=== PATIENT | female | born 1955 | race Caucasian/White ===

== ENCOUNTER 2025-01-22 18:07 | Inpatient (IN) ==
[2025-01-22] MEDS: IPRATROPIUM/ALBUTEROL 3 ML AMPUL.NEB NEB ONE (18:54)
[2025-01-22] MEDS: cefTRIAXone 1 GM in DEXTROSE 5% IN WATER 50 ML IV SCH (18:57)
[2025-01-22] MEDS: 0.9 % SODIUM CHLORIDE 1,000 ML IV ONE (18:58)
[2025-01-22] MEDS: AZITHROMYCIN 500 MG in DEXTROSE 5% IN WATER 250 ML IV ONE (19:27)
[2025-01-22] MEDS ORDERED: HYDROcodone/APAP (PP) 5/325MG TABLET (#4) PO PRN (20:06)
[2025-01-22] MEDS ORDERED: LORazepam 0.5 MG TABLET PO PRN (20:06)
[2025-01-22] MEDS ORDERED: ALBUTEROL SULFATE 60 PUFF INHALER INH PRN (20:06)
[2025-01-22] MEDS ORDERED: traZODone HCL 50 MG TABLET PO PRN (20:18)
[2025-01-22] MEDS ORDERED: ONDANSETRON 4 MG/2 ML VIAL IV PRN (20:18)
[2025-01-22] MEDS ORDERED: DEXTROSE 50% 50 ML VIAL IV PRN (20:18)
[2025-01-22] MEDS ORDERED: DEXTROSE 31 GM ORAL.SUSP PO PRN (20:18)
[2025-01-22] MEDS ORDERED: guaiFENesin/DEXTROMETHORPHAN 5ML UD CUP PO PRN (20:18)
[2025-01-22] MEDS ORDERED: HYDROcodone/APAP 5/325MG TABLET PO PRN (20:25)
[2025-01-22] MEDS: 0.9 % SODIUM CHLORIDE 1,000 ML IV SCH (20:51)
[2025-01-22] MEDS: cefTRIAXone 1 GM VIAL IV ONE (20:52)
[2025-01-22] MEDS: predniSONE 20 MG TABLET PO ONE (20:55)
[2025-01-22] MEDS: SERTRALINE 100 MG TABLET PO SCH (20:56)
[2025-01-22] MEDS: GABAPENTIN 300 MG CAPSULE PO SCH (20:56)
[2025-01-22] MEDS: ATORVASTATIN 10 MG TABLET PO SCH (20:56)
[2025-01-22] MEDS: SENNOSIDES 1 TABLET PO SCH (20:58)
[2025-01-22] MEDS: DOCUSATE SODIUM 100 MG CAPSULE PO SCH (20:58)
[2025-01-22] MEDS: INSULIN LISPRO 1 UNIT/0.01 ML UNIT SQ SCH (20:58)
[2025-01-22] MEDS: TRAVOPROST OPHTH DROPS BOTTLE 2.5ML OU SCH (20:59)
[2025-01-22] MEDS: 0.9 % SODIUM CHLORIDE 10 ML SYRINGE IV SCH (20:59)
[2025-01-23 06:04] LABS: Basophils # (Auto) 0.01 K/mcL (0.00-0.30); Basophils % (Auto) 0.1 % (0.0-2.0); Eosinophils # (Auto) 0 K/mcL (0.00-0.70); Eosinophils % (Auto) 0 % (0.0-7.0); Hematocrit 36.2 % (34.1-44.9); Hemoglobin 11.2 g/dL (11.2-15.7); Lymphocytes # (Auto) 0.79 K/mcL (1.50-4.80); Lymphocytes % (Auto) 5.3 % (15.5-49.0); Mean Cell Volume 85.6 fL (80.0-100.0); Mean Corpuscular HGB Conc 30.9 g/dL (31.0-36.0); Mean Platelet Volume 11.6 fL (8.8-12.5); Monocytes # (Auto) 0.33 K/mcL (0.10-0.90); Monocytes % (Auto) 2.2 % (1.0-12.0); Neutrophils % (Auto) 91.9 % (38.0-78.0); Platelet Count 220 K/mcL (140-440); RBC 4.23 M/mcL (3.59-5.38); Red Cell Distribution Width 15.7 % (11.5-14.5); WBC 14.9 K/mcL (4.5-11.0)
[2025-01-23 06:31] LABS: ALT/SGPT 20 U/L (<40); AST/SGOT 22 U/L (<32); Albumin 3.8 gm/dL (3.2-5.2); Albumin/Globulin Ratio 1.2 (1.0-2.3); Alkaline Phosphatase 116 U/L (39-117); Bilirubin,Total 0.4 mg/dL (0.1-1.0); Blood Urea Nitrogen 20 mg/dL (8-23); Calcium 8.7 mg/dL (8.6-10.4); Carbon Dioxide 23 mmol/L (22-30); Chloride 108 mmol/L (96-108); Globulin 3.1 gm/dL (2.2-3.7); Glomerular Filtration Rate 87; Glucose 198 mg/dL (70-105); Potassium 3.7 mmol/L (3.3-5.1); Sodium 142 mmol/L (133-145)
[2025-01-23] MEDS: predniSONE 20 MG TABLET PO SCH (07:49)
[2025-01-23] MEDS: OMEPRAZOLE 20 MG CAPSULE PO SCH (07:49)
[2025-01-23] MEDS: ENOXAPARIN 40 MG/0.4 ML SYRINGE SQ SCH (08:59)
[2025-01-23] MEDS: MELOXICAM 7.5 MG TABLET PO SCH (09:00)
[2025-01-23 09:25] LABS: Estimated Average Glucose(eAG) 134 mg/dL; Hemoglobin A1C 6.3 % Hgb (4.0-6.0)
[2025-01-23] MEDS ORDERED: ALBUTEROL SULFATE 2.5 MG/3 ML NEBULIZER INH PRN (10:27)
[2025-01-23] MEDS: cefTRIAXone 2 GM in DEXTROSE 5% IN WATER 50 ML IV SCH (10:45)
[2025-01-23] MEDS: IPRATROPIUM/ALBUTEROL 3 ML AMPUL.NEB NEB PRN (11:07)
[2025-01-23] MEDS ORDERED: AZITHROMYCIN 500 MG in DEXTROSE 5% IN WATER 250 ML IV SCH (12:00)
[2025-01-23] MEDS: AZITHROMYCIN 500 MG in 0.9 % SODIUM CHLORIDE 250 ML IV SCH (12:25)
[2025-01-23] MEDS: ALBUTEROL SULFATE 2.5 MG/3 ML NEBULIZER INH PRN (19:00)
[2025-01-23] MEDS: ACETAMINOPHEN 325 MG TABLET PO PRN (21:28)
[2025-01-24 05:57] LABS: Basophils # (Auto) 0.01 K/mcL (0.00-0.30); Basophils % (Auto) 0.1 % (0.0-2.0); Eosinophils # (Auto) 0 K/mcL (0.00-0.70); Eosinophils % (Auto) 0 % (0.0-7.0); Hematocrit 30.3 % (34.1-44.9); Hemoglobin 9.6 g/dL (11.2-15.7); Lymphocytes # (Auto) 1.57 K/mcL (1.50-4.80); Lymphocytes % (Auto) 13.7 % (15.5-49.0); Mean Cell Volume 84.4 fL (80.0-100.0); Mean Corpuscular HGB Conc 31.7 g/dL (31.0-36.0); Mean Platelet Volume 11.4 fL (8.8-12.5); Monocytes # (Auto) 0.53 K/mcL (0.10-0.90); Monocytes % (Auto) 4.6 % (1.0-12.0); Neutrophils % (Auto) 81.1 % (38.0-78.0); Platelet Count 221 K/mcL (140-440); RBC 3.59 M/mcL (3.59-5.38); Red Cell Distribution Width 15.6 % (11.5-14.5); WBC 11.5 K/mcL (4.5-11.0)
[2025-01-24 06:26] LABS: ALT/SGPT 16 U/L (<40); AST/SGOT 17 U/L (<32); Albumin 3.4 gm/dL (3.2-5.2); Albumin/Globulin Ratio 1.4 (1.0-2.3); Alkaline Phosphatase 95 U/L (39-117); Bilirubin,Total 0.2 mg/dL (0.1-1.0); Blood Urea Nitrogen 17 mg/dL (8-23); Calcium 8.5 mg/dL (8.6-10.4); Carbon Dioxide 25 mmol/L (22-30); Chloride 109 mmol/L (96-108); Globulin 2.5 gm/dL (2.2-3.7); Glomerular Filtration Rate 92; Glucose 114 mg/dL (70-105); Potassium 3.4 mmol/L (3.3-5.1); Sodium 142 mmol/L (133-145)
[2025-01-24 07:36] VITALS: TEMP 98.4
[2025-01-24] MEDS: MONTELUKAST 10 MG TABLET PO SCH (08:08)
[2025-01-24 11:35] VITALS: O2SAT 91
[2025-01-28] MEDS ORDERED: ALENDRONATE SODIUM 70 MG TABLET PO SCH (07:30)
== END 2025-01-24 13:18 | disposition home or self-care (01) | DRG 871 ==
LOC: ED 18:07 → MEDSUR 20:12
PROVIDERS: ADMIT Internal Medicine; ATTEND Internal Medicine